=== PATIENT | female | born 1965 | race Native Hawaiian/Other Pacific Islander ===

== ENCOUNTER 2016-06-03 15:59 | Emergency (ER) | payer OTHER ==
[~2016-06-03] VITALS: Ht 170.2 cm; Wt 111.6 kg
[~2016-06-03 15:59] MED LIST: ANXIETY MED; HYDR10TA47 PO; LISINOPRIL
[2016-06-03 16:49] LABS: POTASSIUM 4.6 mmol/L (3.6-5.2)
[2016-06-03 16:52] LABS: PLATELET COUNT 336 K/uL (152-353)
[2016-06-03 17:12] VITALS: BP 160/87; TEMP 98
== END 2016-06-03 17:12 | disposition home or self-care (01) ==
LOC: ED 15:59
DX: R10.84 Generalized abdominal pain (principal); K57.92 Diverticulitis of intestine, part unspecified, without perforation or abscess without bleeding
CPT/HCPCS: 36415; 80053; 81000; 85027; 96365; 96374; 99284; J1885; J2405

== ENCOUNTER 2016-11-01 08:23 | Observation (INO) | payer OTHER ==
[~2016-11-01] VITALS: Ht 162.6 cm; Wt 109.4 kg
[2016-11-01 08:38] VITALS: BP 202/102; TEMP 97.8
[2016-11-01 09:37] LABS: PLATELET COUNT 280 K/uL (152-353)
[2016-11-01 10:05] LABS: POTASSIUM 4.2 mmol/L (3.6-5.2)
[2016-11-01 12:10] VITALS: BP 157/72
[2016-11-01 13:37] VITALS: BP 144/78; TEMP 97.7; Ht 162.6 cm; Wt 109.4 kg
[2016-11-01 20:00] VITALS: BP 136/79; TEMP 98
[2016-11-02 04:00] VITALS: BP 148/77; TEMP 98
[2016-11-02 04:51] LABS: PLATELET COUNT 213 K/uL (152-353)
[2016-11-02 05:07] LABS: POTASSIUM 3.9 mmol/L (3.6-5.2)
[2016-11-02 20:00] VITALS: BP 183/80; TEMP 98.2
[2016-11-03] VITALS: BP 159/84; TEMP 98.1
[2016-11-03 06:34] LABS: PLATELET COUNT 220 K/uL (152-353)
[2016-11-03 06:53] LABS: POTASSIUM 4.4 mmol/L (3.6-5.2); SODIUM 142 mmol/L (136-145)
[2016-11-03 08:00] VITALS: BP 147/68; TEMP 99.1
[2016-11-03 12:00] VITALS: BP 176/79; TEMP 99
== END 2016-11-03 16:50 | disposition home or self-care (01) ==
LOC: ED 08:23 → MED/SURG 12:05
PROVIDERS: Emergency Medicine; ADMIT Family Medicine
DX: R11.2 Nausea with vomiting, unspecified (principal); E11.9 Type 2 diabetes mellitus without complications; R19.7 Diarrhea, unspecified; R10.32 Left lower quadrant pain; R39.2 Extrarenal uremia; E88.09 Other disorders of plasma-protein metabolism, not elsewhere classified; F12.90 Cannabis use, unspecified, uncomplicated
CPT/HCPCS: 36415; 36591; 80048; 80053; 80307; 81000; 82150; 82948; 83036; 83690; 83735; 85027; 86318; 87040; 96365; 96366; 96367; 96374; 96375; 99220; 99284; G0378; G0479; J0744; J1650; J1885; J2405; J3475; J3490

== ENCOUNTER 2016-11-18 11:27 | Day surgery (SDC) | payer OTHER ==
[2016-11-18 13:37] LABS: PLATELET COUNT 287 K/uL (152-353)
[2016-11-18 13:43] LABS: POTASSIUM 4.5 mmol/L (3.6-5.2)
== END 2016-11-18 16:23 | disposition home or self-care (01) ==
LOC: OR 11:27
PROVIDERS: Internal Medicine Gastroenterology
PROC: 0DB68ZZ Excision of Stomach, Via Natural or Artificial Opening Endoscopic (ICD-10-PCS; principal; 2016-11-18)
PROC: 0DB88ZZ Excision of Small Intestine, Via Natural or Artificial Opening Endoscopic (ICD-10-PCS; 2016-11-18)
DX: K29.00 Acute gastritis without bleeding (principal); K29.80 Duodenitis without bleeding; K21.0 Gastro-esophageal reflux disease with esophagitis; R11.2 Nausea with vomiting, unspecified; R10.13 Epigastric pain
CPT/HCPCS: 80048; 85027; J2001; J2704; J3010; J3490

== ENCOUNTER 2017-05-07 08:59 | Emergency (ER) | payer OTHER ==
[~2017-05-07] VITALS: Ht 162.6 cm; Wt 112.5 kg
[2017-05-07 09:17] VITALS: BP 171/78; TEMP 98
== END 2017-05-07 11:20 | disposition home or self-care (01) ==
LOC: ED 08:59
PROC: 3E1B78Z Irrigation of Ear using Irrigating Substance, Via Natural or Artificial Opening (ICD-10-PCS; principal; 2017-05-07)
PROC: 3E1B78Z Irrigation of Ear using Irrigating Substance, Via Natural or Artificial Opening (ICD-10-PCS; 2017-05-07)
DX: H91.8X2 Other specified hearing loss, left ear (principal); H65.191 Other acute nonsuppurative otitis media, right ear; H61.23 Impacted cerumen, bilateral; H72.92 Unspecified perforation of tympanic membrane, left ear
CPT/HCPCS: 99283

== ENCOUNTER 2017-05-10 14:33 | Emergency (ER) | payer OTHER ==
[~2017-05-10] VITALS: Ht 162.6 cm; Wt 111.6 kg
[2017-05-10] MEDS ORDERED: LIPITOR10 MG PO (14:51)
[2017-05-10] MEDS ORDERED: ZANTAC300 MG PO (14:52)
[2017-05-10] MEDS ORDERED: TIZA4TAB5 PO (14:53)
[2017-05-10] MEDS ORDERED: METO5SYP21 PO (14:53)
[2017-05-10] MEDS ORDERED: ZOLOFT25 MG OR (14:54)
[2017-05-10] MEDS ORDERED: ASPIRIN 81 LOW81 MG PO (14:54)
[2017-05-10] MEDS ORDERED: ZESTRIL40 MG OR (14:54)
[2017-05-10] MEDS ORDERED: PROAIR HFA IN (14:58)
[2017-05-10] MEDS ORDERED: HYDR5TAB9 PO (14:58)
[2017-05-10 15:30] LABS: PLATELET COUNT 343 K/uL (152-353)
[2017-05-10 15:36] LABS: POTASSIUM 4.1 mmol/L (3.6-5.2)
[2017-05-10 19:32] VITALS: BP 165/92; TEMP 98.6
== END 2017-05-10 19:34 | disposition home or self-care (01) ==
LOC: ED 14:33
PROVIDERS: Emergency Medicine
DX: G43.909 Migraine, unspecified, not intractable, without status migrainosus (principal); H83.03 Labyrinthitis, bilateral; R11.2 Nausea with vomiting, unspecified
CPT/HCPCS: 36415; 80053; 82550; 84484; 85027; 96361; 96374; 96375; 96376; 99284; J0360; J1100; J1200; J1885; J2405

== ENCOUNTER 2017-05-19 15:04 | Emergency (ER) | payer OTHER ==
[~2017-05-19] VITALS: Ht 162.6 cm; Wt 109.8 kg
[~2017-05-19 15:04] MED LIST changes: +ASPIRIN 81 LOW81 MG PO; +HYDR5TAB9 PO; +LIPITOR10 MG PO; +METO5SYP21 PO; +PROAIR HFA IN; +TIZA4TAB5 PO; +ZANTAC300 MG PO; +ZESTRIL40 MG OR; +ZOLOFT25 MG OR
[2017-05-19 15:23] VITALS: TEMP 97.9
[2017-05-19 16:01] LABS: PLATELET COUNT 361 K/uL (152-353)
[2017-05-19 16:05] LABS: POTASSIUM 4.2 mmol/L (3.6-5.2)
[2017-05-19 16:47] VITALS: BP 129/76
== END 2017-05-19 17:00 | disposition home or self-care (01) ==
LOC: ED 15:04
PROVIDERS: Family Medicine
DX: I16.0 Hypertensive urgency (principal)
CPT/HCPCS: 80053; 85027; 87804; 96374; 96375; 99284; J1170; J2405; J3490

== ENCOUNTER 2017-05-23 13:53 | Outpatient (CLI) | payer OTHER | END 2017-05-23 14:06 | disposition short-term general hospital (02) | LOC: AMB 13:53 | DX: R11.2 Nausea with vomiting, unspecified (principal); R07.89 Other chest pain; I10 Essential (primary) hypertension | CPT/HCPCS: A0425; A0427 ==

== ENCOUNTER 2017-06-01 18:00 | Outpatient (CLI) | payer OTHER | END 2017-06-01 18:09 | disposition short-term general hospital (02) | LOC: AMB 18:00 | DX: R53.1 Weakness (principal); R11.2 Nausea with vomiting, unspecified; R19.7 Diarrhea, unspecified | CPT/HCPCS: A0425; A0427 ==

== ENCOUNTER 2017-11-18 18:09 | Emergency (ER) | payer OTHER ==
[~2017-11-18] VITALS: Ht 162.6 cm; Wt 91.2 kg
[2017-11-18 19:16] LABS: PLATELET COUNT 183 K/uL (152-353)
[2017-11-18 19:29] LABS: POTASSIUM 3.7 mmol/L (3.6-5.2)
[2017-11-18 22:59] VITALS: BP 164/87; TEMP 98.5
== END 2017-11-18 22:39 | disposition home or self-care (01) ==
LOC: ED 18:09
DX: I12.0 Hypertensive chronic kidney disease with stage 5 chronic kidney disease or end stage renal disease (principal); N18.6 End stage renal disease; R11.2 Nausea with vomiting, unspecified; R50.9 Fever, unspecified; H83.8X9 Other specified diseases of inner ear, unspecified ear; H92.09 Otalgia, unspecified ear; R07.89 Other chest pain; R51 Headache
CPT/HCPCS: 80053; 82150; 82550; 82553; 83690; 83735; 84484; 85027; 93005; 96374; 96375; 99284; J2270; J2405; J2550

== ENCOUNTER 2017-12-06 11:01 | Emergency (ER) | payer OTHER ==
[~2017-12-06] VITALS: Ht 162.6 cm; Wt 91.2 kg
[2017-12-06 12:35] LABS: PLATELET COUNT 351 K/uL (152-353)
[2017-12-06 12:46] LABS: POTASSIUM 3.8 mmol/L (3.6-5.2)
[2017-12-06 14:30] VITALS: BP 165/89; TEMP 97.7
== END 2017-12-06 14:30 | disposition home or self-care (01) ==
LOC: ED 11:01
DX: R11.2 Nausea with vomiting, unspecified (principal); N18.9 Chronic kidney disease, unspecified; Z99.2 Dependence on renal dialysis
CPT/HCPCS: 36415; 74022; 80053; 85027; 96365; 96374; 99284; J2405

== ENCOUNTER 2018-02-07 13:13 | Emergency (ER) | payer OTHER ==
[~2018-02-07] VITALS: Ht 162.6 cm; Wt 91.2 kg
[2018-02-07 13:26] VITALS: TEMP 97
[2018-02-07 14:55] LABS: PLATELET COUNT 301 K/uL (152-353)
[2018-02-07 15:11] LABS: POTASSIUM 4.6 mmol/L (3.6-5.2)
[2018-02-07 16:19] VITALS: BP 164/84
== END 2018-02-07 16:20 | disposition home or self-care (01) ==
LOC: ED 13:13
DX: K52.89 Other specified noninfective gastroenteritis and colitis (principal); E11.9 Type 2 diabetes mellitus without complications
CPT/HCPCS: 36415; 80053; 81000; 82550; 82553; 83036; 84484; 85027; 93005; 96365; 96374; 99284; J2405; J7120

== ENCOUNTER 2018-04-15 19:59 | Emergency (ER) | payer OTHER ==
[~2018-04-15] VITALS: Ht 162.6 cm; Wt 91.2 kg
[2018-04-15 20:39] LABS: PLATELET COUNT 299 K/uL (152-353)
[2018-04-15 20:50] LABS: POTASSIUM 3.9 mmol/L (3.6-5.2)
[2018-04-15 22:27] VITALS: BP 162/87; TEMP 97.9
== END 2018-04-15 22:28 | disposition home or self-care (01) ==
LOC: ED 19:59
DX: K52.89 Other specified noninfective gastroenteritis and colitis (principal)
CPT/HCPCS: 36415; 74022; 80053; 81000; 82140; 83605; 85027; 96360; 96375; 99284; J2175; J2405; J7120

== ENCOUNTER 2018-04-20 17:31 | Outpatient (CLI) | payer OTHER | END 2018-04-20 17:40 | disposition short-term general hospital (02) | LOC: AMB 17:31 | DX: I10 Essential (primary) hypertension (principal) | CPT/HCPCS: A0425; A0427 ==

== ENCOUNTER 2018-04-20 17:40 | Emergency (ER) | payer OTHER ==
[~2018-04-20] VITALS: Ht 162.6 cm; Wt 91.2 kg
[2018-04-20 18:45] LABS: PLATELET COUNT 301 K/uL (152-353)
[2018-04-20 19:14] LABS: POTASSIUM 3.9 mmol/L (3.6-5.2); SODIUM 141 mmol/L (136-145)
[2018-04-20 20:17] VITALS: BP 146/55; TEMP 97.7
== END 2018-04-20 20:17 | disposition home or self-care (01) ==
LOC: ED 17:40
PROVIDERS: Emergency Medicine
DX: I10 Essential (primary) hypertension (principal); N19 Unspecified kidney failure
CPT/HCPCS: 36415; 80053; 82550; 82553; 84484; 85027; 93005; 99283

== ENCOUNTER 2018-04-24 16:01 | Outpatient (CLI) | payer OTHER | END 2018-04-24 16:09 | disposition short-term general hospital (02) | LOC: AMB 16:01 | DX: R11.2 Nausea with vomiting, unspecified (principal); Z99.2 Dependence on renal dialysis | CPT/HCPCS: A0425; A0427 ==

== ENCOUNTER 2018-04-24 16:10 | Emergency (ER) | payer OTHER ==
[~2018-04-24] VITALS: Ht 162.6 cm; Wt 91.2 kg
[2018-04-24 17:07] LABS: PLATELET COUNT 349 K/uL (152-353)
[2018-04-24 17:18] LABS: POTASSIUM 3.7 mmol/L (3.6-5.2)
[2018-04-24 21:54] VITALS: BP 134/48; TEMP 98.1
== END 2018-04-24 21:55 | disposition home or self-care (01) ==
LOC: ED 16:10
PROVIDERS: Family Medicine
DX: K57.30 Diverticulosis of large intestine without perforation or abscess without bleeding (principal); K57.92 Diverticulitis of intestine, part unspecified, without perforation or abscess without bleeding
CPT/HCPCS: 74022; 80053; 81000; 85027; 87088; 96374; 96375; 99284; J1885; J2405

== ENCOUNTER 2018-05-31 14:48 | Outpatient (CLI) | payer OTHER | END 2018-05-31 14:58 | disposition short-term general hospital (02) | LOC: AMB 14:48 | DX: R10.9 Unspecified abdominal pain (principal); R11.2 Nausea with vomiting, unspecified | CPT/HCPCS: A0425; A0427 ==

== ENCOUNTER 2018-05-31 14:58 | Emergency (ER) | payer OTHER ==
[~2018-05-31] VITALS: Ht 162.6 cm; Wt 91.2 kg
[2018-05-31 15:53] LABS: PLATELET COUNT 253 K/uL (152-353)
[2018-05-31 16:06] LABS: POTASSIUM 5.3 mmol/L (3.6-5.2)
[2018-05-31 18:25] VITALS: BP 160/86; TEMP 97.8
== END 2018-05-31 18:25 | disposition home or self-care (01) ==
LOC: ED 15:06
PROVIDERS: Family Medicine
DX: N19 Unspecified kidney failure (principal); R11.2 Nausea with vomiting, unspecified; R10.13 Epigastric pain
CPT/HCPCS: 80053; 82150; 83690; 85027; 96374; 99284; J1885; J2175

== ENCOUNTER 2018-08-01 11:13 | Outpatient (CLI) | payer OTHER ==
[2018-08-01 12:01] LABS: PLATELET COUNT 216 K/uL (152-353)
[2018-08-01 12:14] LABS: POTASSIUM 3.4 mmol/L (3.6-5.2)
== END 2018-08-01 23:01 | disposition home or self-care (01) ==
LOC: LABW 11:13
PROVIDERS: Podiatrist
DX: Z01.818 Encounter for other preprocedural examination (principal); Z01.811 Encounter for preprocedural respiratory examination; Z79.899 Other long term (current) drug therapy
CPT/HCPCS: 36415; 80048; 85027; 93005

== ENCOUNTER 2018-08-09 13:34 | Emergency (ER) | payer OTHER ==
[~2018-08-09] VITALS: Ht 162.6 cm; Wt 91.2 kg
[2018-08-09 15:52] LABS: PLATELET COUNT 306 K/uL (152-353)
[2018-08-09 16:20] LABS: POTASSIUM 4.1 mmol/L (3.6-5.2)
[2018-08-09 16:55] VITALS: BP 146/67; TEMP 97.7
== END 2018-08-09 17:00 | disposition home or self-care (01) ==
LOC: ED 13:34
PROVIDERS: Family Medicine
DX: K52.89 Other specified noninfective gastroenteritis and colitis (principal); R00.1 Bradycardia, unspecified
CPT/HCPCS: 36415; 80053; 82150; 83690; 85027; 93005; 96372; 99283; J2550

== ENCOUNTER 2018-08-12 20:40 | Outpatient (CLI) | payer OTHER | END 2018-08-12 21:04 | disposition short-term general hospital (02) | LOC: AMB 20:40 | DX: R11.2 Nausea with vomiting, unspecified (principal); R53.1 Weakness; I10 Essential (primary) hypertension; R07.89 Other chest pain | CPT/HCPCS: A0425; A0427 ==

== ENCOUNTER 2018-08-17 17:15 | Outpatient (CLI) | payer OTHER | END 2018-08-17 17:25 | disposition short-term general hospital (02) | LOC: AMB 17:15 | DX: R07.89 Other chest pain (principal); R11.2 Nausea with vomiting, unspecified | CPT/HCPCS: A0425; A0427 ==

== ENCOUNTER 2018-08-17 17:25 | Emergency (ER) | payer OTHER ==
[~2018-08-17] VITALS: Ht 162.6 cm; Wt 91.2 kg
[2018-08-17 17:54] LABS: PLATELET COUNT 240 K/uL (152-353)
[2018-08-17 18:10] LABS: POTASSIUM 3.7 mmol/L (3.6-5.2); SODIUM 139 mmol/L (136-145)
[2018-08-17 20:02] LABS: PARTIAL THROMBOPLASTIN TIME 25.2 SECONDS (24.5-33.6)
[2018-08-17 20:40] VITALS: BP 236/95; TEMP 97.8
== END 2018-08-17 20:40 | disposition home or self-care (01) ==
LOC: ED 17:25
PROVIDERS: Emergency Medicine
DX: R79.89 Other specified abnormal findings of blood chemistry (principal); R07.89 Other chest pain; N19 Unspecified kidney failure
CPT/HCPCS: 80053; 82550; 84484; 85027; 85379; 85610; 85730; 96365; 96375; 99285; J1644; J1885; J2405

== ENCOUNTER 2018-08-23 14:46 | Outpatient (CLI) | payer OTHER ==
[2018-08-23] MEDS ORDERED: ZOFRAN ODT4 MG PO (15:30)
[2018-08-23] MEDS ORDERED: RENA-VITE PO (15:34)
[2018-08-23] MEDS ORDERED: SIMV40TA57 PO (15:35)
[2018-08-23] MEDS ORDERED: BYSTOLIC20 MG PO (15:35)
[2018-08-23] MEDS ORDERED: TEMA15CA19 PO (15:35)
[2018-08-23] MEDS ORDERED: AMLODIPINE BESYLATE PO (15:36)
[2018-08-23] MEDS ORDERED: CLOP75TA2 PO (15:36)
[2018-08-23] MEDS ORDERED: FUROSEMIDE80 MG PO (15:37)
== END 2018-08-23 14:53 | disposition short-term general hospital (02) ==
LOC: AMB 14:46
DX: I10 Essential (primary) hypertension (principal); R11.0 Nausea; R52 Pain, unspecified
CPT/HCPCS: A0425; A0429

== ENCOUNTER 2018-08-23 14:56 | Emergency (ER) | payer OTHER ==
[~2018-08-23] VITALS: Ht 162.6 cm; Wt 90.3 kg
[2018-08-23] MEDS ORDERED: ZOFRAN ODT4 MG PO (15:30)
[2018-08-23] MEDS ORDERED: RENA-VITE PO (15:34)
[2018-08-23] MEDS ORDERED: TEMA15CA19 PO (15:35)
[2018-08-23] MEDS ORDERED: SIMV40TA57 PO (15:35)
[2018-08-23] MEDS ORDERED: BYSTOLIC20 MG PO (15:35)
[2018-08-23] MEDS ORDERED: CLOP75TA2 PO (15:36)
[2018-08-23] MEDS ORDERED: AMLODIPINE BESYLATE PO (15:36)
[2018-08-23] MEDS ORDERED: FUROSEMIDE80 MG PO (15:37)
[2018-08-23 15:58] LABS: PLATELET COUNT 223 K/uL (152-353)
[2018-08-23 16:10] LABS: POTASSIUM 4.2 mmol/L (3.6-5.2); SODIUM 143 mmol/L (136-145)
[2018-08-23 18:10] VITALS: BP 159/78; TEMP 97.8
== END 2018-08-23 18:10 | disposition home or self-care (01) ==
LOC: ED 14:56
PROVIDERS: Family Medicine
DX: R07.89 Other chest pain (principal); R11.2 Nausea with vomiting, unspecified
CPT/HCPCS: 36415; 80053; 82550; 84484; 85027; 93005; 96374; 96375; 99284; J1885; J2405

== ENCOUNTER 2018-08-31 07:58 | Emergency (ER) | payer OTHER ==
[~2018-08-31 07:58] MED LIST changes: +AMLODIPINE BESYLATE PO; +BYSTOLIC20 MG PO; +CLOP75TA2 PO; +FUROSEMIDE80 MG PO; +RENA-VITE PO; +SIMV40TA57 PO; +TEMA15CA19 PO; +ZOFRAN ODT4 MG PO
== END 2018-08-31 08:10 | disposition home or self-care (01) ==
LOC: ED 07:58
DX: R07.89 Other chest pain (principal)
CPT/HCPCS: 99281

== ENCOUNTER 2018-09-24 05:11 | Emergency (ER) | payer OTHER ==
[~2018-09-24] VITALS: Ht 162.6 cm; Wt 90.3 kg
[2018-09-24 05:20] VITALS: TEMP 97.7
[2018-09-24 06:08] LABS: PLATELET COUNT 279 K/uL (152-353)
[2018-09-24 06:18] LABS: POTASSIUM 4.8 mmol/L (3.6-5.2)
[2018-09-24 08:10] VITALS: BP 178/84
== END 2018-09-24 08:10 | disposition home or self-care (01) ==
LOC: ED 05:11
PROVIDERS: Student in an Organized Health Care Education/Training Program
DX: K57.32 Diverticulitis of large intestine without perforation or abscess without bleeding (principal); N18.6 End stage renal disease; Z99.2 Dependence on renal dialysis
CPT/HCPCS: 36415; 80053; 82150; 83690; 85027; 93005; 96374; 96375; 99284; J0696; J1170; J2550

== ENCOUNTER 2018-10-07 16:48 | Emergency (ER) | payer OTHER ==
[~2018-10-07] VITALS: Ht 162.6 cm; Wt 90.3 kg
[2018-10-07 17:42] LABS: PLATELET COUNT 305 K/uL (152-353)
[2018-10-07 17:54] LABS: POTASSIUM 3.3 mmol/L (3.6-5.2)
[2018-10-07 19:39] VITALS: BP 188/72; TEMP 98.3
== END 2018-10-07 19:39 | disposition home or self-care (01) ==
LOC: ED 16:48
PROVIDERS: Emergency Medicine Emergency Medical Services
DX: R51 Headache (principal); N18.6 End stage renal disease; Z99.2 Dependence on renal dialysis
CPT/HCPCS: 36415; 80053; 85027; 96360; 96361; 96374; 96375; 99284; J2175; J2405

== ENCOUNTER 2018-11-14 19:02 | Emergency (ER) | payer OTHER ==
[~2018-11-14] VITALS: Ht 162.6 cm; Wt 84.8 kg
[2018-11-14 20:34] VITALS: BP 150/85; TEMP 98
== END 2018-11-14 20:35 | disposition home or self-care (01) ==
LOC: ED 19:02
DX: S92.512A Displaced fracture of proximal phalanx of left lesser toe(s), initial encounter for closed fracture (principal); W22.8XXA Striking against or struck by other objects, initial encounter; Y93.89 Activity, other specified; Y92.89 Other specified places as the place of occurrence of the external cause
CPT/HCPCS: 99282

== ENCOUNTER 2018-11-27 19:18 | Outpatient (CLI) | payer OTHER | END 2018-11-27 19:24 | disposition short-term general hospital (02) | LOC: AMB 19:18 | DX: R11.2 Nausea with vomiting, unspecified (principal); R51 Headache; I10 Essential (primary) hypertension | CPT/HCPCS: A0425; A0427 ==

== ENCOUNTER 2018-11-27 19:24 | Emergency (ER) | payer OTHER ==
[~2018-11-27] VITALS: Ht 162.6 cm; Wt 84.8 kg
[2018-11-27 20:15] LABS: PLATELET COUNT 258 K/uL (152-353)
[2018-11-27 20:34] LABS: POTASSIUM 4.8 mmol/L (3.6-5.2); SODIUM 144 mmol/L (136-145)
[2018-11-27 20:45] LABS: PARTIAL THROMBOPLASTIN TIME 29.9 SECONDS (24.5-33.6)
[2018-11-27 23:35] VITALS: BP 137/74; TEMP 98
== END 2018-11-27 23:35 | disposition home or self-care (01) ==
LOC: ED 19:31
PROVIDERS: Hospitalist
DX: N18.6 End stage renal disease (principal); Z99.2 Dependence on renal dialysis; I16.0 Hypertensive urgency; R07.89 Other chest pain; R51 Headache; F17.210 Nicotine dependence, cigarettes, uncomplicated
CPT/HCPCS: 80053; 82550; 83880; 84484; 85027; 85610; 85730; 93005; 96374; 96375; 96376; 99284; J2270; J2405; J3490

== ENCOUNTER 2018-12-04 13:40 | Outpatient (CLI) | payer OTHER | END 2018-12-04 13:48 | disposition short-term general hospital (02) | LOC: AMB 13:40 | DX: I10 Essential (primary) hypertension (principal); R11.2 Nausea with vomiting, unspecified; R52 Pain, unspecified | CPT/HCPCS: A0425; A0427 ==

== ENCOUNTER 2018-12-04 13:52 | Emergency (ER) | payer OTHER ==
[~2018-12-04] VITALS: Ht 162.6 cm; Wt 84.8 kg
[2018-12-04 14:00] VITALS: TEMP 97.2
[2018-12-04 14:26] LABS: PLATELET COUNT 278 K/uL (152-353)
[2018-12-04 14:48] LABS: PARTIAL THROMBOPLASTIN TIME 27.7 SECONDS (24.5-33.6)
[2018-12-04 14:50] LABS: POTASSIUM 5.6 mmol/L (3.6-5.2); SODIUM 143 mmol/L (136-145)
[2018-12-04 18:44] VITALS: BP 182/82
== END 2018-12-04 19:00 | disposition short-term general hospital (02) ==
LOC: ED 13:52
PROVIDERS: Hospitalist
PROC: 0BH17EZ Insertion of Endotracheal Airway into Trachea, Via Natural or Artificial Opening (ICD-10-PCS; principal; 2018-12-04)
PROC: 5A1935Z Respiratory Ventilation, Less than 24 Consecutive Hours (ICD-10-PCS; 2018-12-04)
PROC: 0T9B70Z Drainage of Bladder with Drainage Device, Via Natural or Artificial Opening (ICD-10-PCS; 2018-12-04)
DX: N18.6 End stage renal disease (principal); Z99.2 Dependence on renal dialysis; Z91.15 Patient's noncompliance with renal dialysis; R07.89 Other chest pain; I50.9 Heart failure, unspecified; R11.2 Nausea with vomiting, unspecified; E87.5 Hyperkalemia; R51 Headache
CPT/HCPCS: 31500; 36600; 51702; 80053; 80320; 81000; 82550; 82805; 83880; 84484; 85027; 85610; 85730; 93005; 94002; 94003; 94660; 94664; 96365; 96368; 96375; 99285; C1726; J0610; J1940; J2250; J2270; J2405; J3490

== ENCOUNTER 2018-12-27 21:01 | Emergency (ER) | payer OTHER ==
[~2018-12-27] VITALS: Ht 162.6 cm; Wt 84.8 kg
[2018-12-27 22:52] LABS: PLATELET COUNT 301 K/uL (152-353)
[2018-12-27 22:56] LABS: POTASSIUM 3.9 mmol/L (3.6-5.2); SODIUM 138 mmol/L (136-145)
[2018-12-28 02:50] VITALS: BP 158/79; TEMP 97.7
== END 2018-12-28 02:50 | disposition home or self-care (01) ==
LOC: ED 21:01
PROVIDERS: Emergency Medicine
DX: R07.89 Other chest pain (principal); E86.0 Dehydration; Z99.2 Dependence on renal dialysis; R00.1 Bradycardia, unspecified
CPT/HCPCS: 80053; 83690; 84484; 85027; 93005; 96374; 99284; J2405

== ENCOUNTER 2019-01-11 18:38 | Outpatient (CLI) | payer OTHER | END 2019-01-11 19:13 | disposition short-term general hospital (02) | LOC: AMB 18:38 | DX: R51 Headache (principal); R11.2 Nausea with vomiting, unspecified | CPT/HCPCS: A0425; A0427 ==

== ENCOUNTER 2019-01-20 13:38 | Outpatient (CLI) | payer OTHER | END 2019-01-20 13:45 | disposition short-term general hospital (02) | LOC: AMB 13:38 | DX: R11.10 Vomiting, unspecified (principal); R19.7 Diarrhea, unspecified; R53.1 Weakness; R07.89 Other chest pain; Z99.2 Dependence on renal dialysis | CPT/HCPCS: A0425; A0427 ==

== ENCOUNTER 2019-01-20 13:50 | Emergency (ER) | payer OTHER ==
[~2019-01-20] VITALS: Ht 162.6 cm; Wt 78.0 kg
[2019-01-20 14:01] VITALS: TEMP 97.3
[2019-01-20 14:16] LABS: PLATELET COUNT 255 K/uL (152-353)
[2019-01-20 15:36] LABS: POTASSIUM 5.7 mmol/L (3.6-5.2)
[2019-01-21 01:32] LABS: PARTIAL THROMBOPLASTIN TIME 25.4 SECONDS (24.5-33.6)
[2019-01-21 02:12] VITALS: BP 155/97
== END 2019-01-21 02:17 | disposition short-term general hospital (02) ==
LOC: ED 13:50
PROVIDERS: Family Medicine
DX: I21.3 ST elevation (STEMI) myocardial infarction of unspecified site (principal); R07.89 Other chest pain; N18.6 End stage renal disease; Z99.2 Dependence on renal dialysis; F17.210 Nicotine dependence, cigarettes, uncomplicated
CPT/HCPCS: 80053; 84484; 85027; 85610; 85730; 87502; 93005; 96360; 96361; 96365; 96374; 96375; 99285; J1644; J2060; J2270; J2405

== ENCOUNTER 2019-01-30 03:59 | Outpatient (CLI) | payer OTHER | END 2019-01-30 04:07 | disposition short-term general hospital (02) | LOC: AMB 03:59 | DX: R10.84 Generalized abdominal pain (principal); R11.0 Nausea; K92.1 Melena | CPT/HCPCS: A0425; A0427 ==

== ENCOUNTER 2019-01-30 04:20 | Emergency (ER) | payer OTHER ==
[~2019-01-30] VITALS: Ht 162.6 cm; Wt 78.0 kg
[2019-01-30 06:24] LABS: PLATELET COUNT 290 K/uL (152-353)
[2019-01-30 06:35] LABS: POTASSIUM 4.5 mmol/L (3.6-5.2)
[2019-01-30 06:52] LABS: PARTIAL THROMBOPLASTIN TIME 26.1 SECONDS (24.5-33.6)
[2019-01-30 07:59] VITALS: BP 111/67; TEMP 97.3
== END 2019-01-30 07:59 | disposition home or self-care (01) ==
LOC: ED 04:20
PROVIDERS: Hospitalist
DX: K57.90 Diverticulosis of intestine, part unspecified, without perforation or abscess without bleeding (principal); K64.4 Residual hemorrhoidal skin tags; N18.6 End stage renal disease; Z99.2 Dependence on renal dialysis
CPT/HCPCS: 36415; 80053; 82150; 82272; 83690; 85027; 85610; 85730; 93005; 96365; 96375; 99284; J2405; J3490

== ENCOUNTER 2019-02-11 17:22 | Outpatient (CLI) | payer OTHER | END 2019-02-11 17:39 | disposition short-term general hospital (02) | LOC: AMB 17:22 | DX: R07.89 Other chest pain (principal) | CPT/HCPCS: A0425; A0427 ==

== ENCOUNTER 2019-02-11 17:49 | Emergency (ER) | payer OTHER ==
[~2019-02-11] VITALS: Ht 162.6 cm; Wt 76.2 kg
[2019-02-11 18:13] LABS: PLATELET COUNT 236 K/uL (152-353)
[2019-02-11 18:46] LABS: POTASSIUM 3.6 mmol/L (3.6-5.2)
[2019-02-11 20:00] VITALS: BP 175/64; TEMP 97.7
== END 2019-02-11 20:00 | disposition home or self-care (01) ==
LOC: ED 17:49
PROVIDERS: Emergency Medicine Emergency Medical Services
DX: R07.89 Other chest pain (principal); I16.0 Hypertensive urgency
CPT/HCPCS: 36415; 80053; 82550; 83880; 84484; 85027; 85610; 85730; 93005; 96374; 96375; 99284; J2270; J2405

== ENCOUNTER 2019-02-19 10:09 | Outpatient (CLI) | payer OTHER | END 2019-02-19 10:15 | disposition short-term general hospital (02) | LOC: AMB 10:09 | DX: R10.84 Generalized abdominal pain (principal) | CPT/HCPCS: A0425; A0427 ==

== ENCOUNTER 2019-02-19 10:20 | Emergency (ER) | payer OTHER ==
[~2019-02-19] VITALS: Ht 162.6 cm; Wt 76.2 kg
[2019-02-19 10:20] VITALS: TEMP 98
[2019-02-19 11:02] LABS: PLATELET COUNT 204 K/uL (152-353)
[2019-02-19 11:15] LABS: PARTIAL THROMBOPLASTIN TIME 25.6 SECONDS (24.5-33.6); POTASSIUM 4.1 mmol/L (3.6-5.2)
[2019-02-19 13:40] VITALS: BP 172/84
== END 2019-02-19 13:42 | disposition home or self-care (01) ==
LOC: ED 10:20
PROVIDERS: Hospitalist
DX: K57.90 Diverticulosis of intestine, part unspecified, without perforation or abscess without bleeding (principal); R11.2 Nausea with vomiting, unspecified; N18.6 End stage renal disease; Z99.2 Dependence on renal dialysis; F17.210 Nicotine dependence, cigarettes, uncomplicated
CPT/HCPCS: 80053; 80320; 82150; 83690; 84484; 85027; 85610; 85730; 93005; 96374; 96375; 99284; J1885; J2270; J2405; J3490

== ENCOUNTER 2019-02-24 00:59 | Outpatient (CLI) | payer OTHER | END 2019-02-24 01:06 | disposition short-term general hospital (02) | LOC: AMB 00:59 | DX: R10.84 Generalized abdominal pain (principal); R11.10 Vomiting, unspecified | CPT/HCPCS: A0425; A0427 ==

== ENCOUNTER 2019-02-24 01:14 | Emergency (ER) | payer OTHER ==
[~2019-02-24] VITALS: Ht 162.6 cm; Wt 76.2 kg
[2019-02-24 01:45] LABS: PLATELET COUNT 256 K/uL (152-353)
[2019-02-24 02:02] LABS: POTASSIUM 4.9 mmol/L (3.6-5.2)
[2019-02-24 03:16] VITALS: BP 186/103; TEMP 98.2
== END 2019-02-24 03:16 | disposition home or self-care (01) ==
LOC: ED 01:14
PROVIDERS: Emergency Medicine
DX: K58.9 Irritable bowel syndrome, unspecified (principal); R14.3 Flatulence
CPT/HCPCS: 80053; 84484; 85027; 93005; 99283

== ENCOUNTER 2019-03-06 08:40 | Outpatient (CLI) | payer OTHER | END 2019-03-06 08:48 | disposition short-term general hospital (02) | LOC: AMB 08:40 | DX: R10.84 Generalized abdominal pain (principal); R11.10 Vomiting, unspecified; R19.7 Diarrhea, unspecified | CPT/HCPCS: A0425; A0427 ==

== ENCOUNTER 2019-03-06 08:49 | Emergency (ER) | payer OTHER ==
[~2019-03-06] VITALS: Ht 162.6 cm; Wt 87.7 kg
[2019-03-06 08:49] VITALS: TEMP 97.7
[2019-03-06 09:12] LABS: PLATELET COUNT 550 K/uL (152-353)
[2019-03-06 09:53] LABS: SODIUM 144 mmol/L (136-145)
[2019-03-06 10:30] VITALS: BP 169/75
== END 2019-03-06 10:45 | disposition home or self-care (01) ==
LOC: ED 08:54
PROVIDERS: Emergency Medicine
DX: K52.89 Other specified noninfective gastroenteritis and colitis (principal); Z99.2 Dependence on renal dialysis
CPT/HCPCS: 80053; 82150; 83690; 84484; 85027; 93005; 96360; 96374; 96375; 99284; J2405

== ENCOUNTER 2019-03-25 10:35 | Outpatient (CLI) | payer OTHER | END 2019-03-25 10:46 | disposition short-term general hospital (02) | LOC: AMB 10:35 | DX: R53.1 Weakness (principal); R50.9 Fever, unspecified; Z99.2 Dependence on renal dialysis | CPT/HCPCS: A0425; A0429 ==

== ENCOUNTER 2019-03-25 10:53 | Emergency (ER) | payer OTHER ==
[~2019-03-25] VITALS: Ht 162.6 cm; Wt 87.5 kg
[2019-03-25 11:46] LABS: PLATELET COUNT 386 K/uL (152-353)
[2019-03-25 12:17] VITALS: BP 159/91; TEMP 98.2
== END 2019-03-25 12:17 | disposition home or self-care (01) ==
LOC: ED 10:53
PROVIDERS: Emergency Medicine Emergency Medical Services
DX: L03.114 Cellulitis of left upper limb (principal)
CPT/HCPCS: 85027; 99283

== ENCOUNTER → 2019-03-28 13:02 | Outpatient (CLI) | payer OTHER | END | disposition short-term general hospital (02) | LOC: AMB 13:02 | DX: R07.89 Other chest pain (principal); R51 Headache; R11.2 Nausea with vomiting, unspecified | CPT/HCPCS: A0425; A0427 ==

== ENCOUNTER 2019-03-28 13:04 | Emergency (ER) | payer OTHER ==
[~2019-03-28] VITALS: Ht 162.6 cm; Wt 87.5 kg
[2019-03-28 14:25] LABS: POTASSIUM 4.2 mmol/L (3.6-5.2)
[2019-03-28 14:35] LABS: PLATELET COUNT 421 K/uL (152-353)
[2019-03-28 15:45] VITALS: BP 158/62; TEMP 97.6
== END 2019-03-28 15:45 | disposition home or self-care (01) ==
LOC: ED 13:04
PROVIDERS: Family Medicine
DX: R11.2 Nausea with vomiting, unspecified (principal); N18.6 End stage renal disease; Z99.2 Dependence on renal dialysis; R00.1 Bradycardia, unspecified
CPT/HCPCS: 36415; 80053; 85027; 93005; 96374; 96375; 99284; J1885; J2405

== ENCOUNTER 2019-04-04 15:21 | Outpatient (CLI) | payer OTHER | END 2019-04-04 20:26 | disposition home or self-care (01) | LOC: RESP 15:21 | DX: R06.02 Shortness of breath (principal) ==

== ENCOUNTER 2019-04-17 17:51 | Outpatient (CLI) | payer OTHER | END 2019-04-17 17:58 | disposition short-term general hospital (02) | LOC: AMB 17:51 | DX: R11.2 Nausea with vomiting, unspecified (principal) | CPT/HCPCS: A0425; A0429 ==

== ENCOUNTER 2019-04-17 18:03 | Emergency (ER) | payer OTHER ==
[~2019-04-17] VITALS: Ht 162.6 cm; Wt 87.5 kg
[2019-04-17 18:35] LABS: PLATELET COUNT 339 K/uL (152-353)
[2019-04-17 18:47] LABS: POTASSIUM 5.3 mmol/L (3.6-5.2); SODIUM 141 mmol/L (136-145)
[2019-04-17 21:20] VITALS: BP 169/96; TEMP 98.1
== END 2019-04-17 21:20 | disposition short-term general hospital (02) ==
LOC: ED 18:03
PROVIDERS: Emergency Medicine
DX: K85.80 Other acute pancreatitis without necrosis or infection (principal); K57.90 Diverticulosis of intestine, part unspecified, without perforation or abscess without bleeding; Z79.899 Other long term (current) drug therapy; Z99.2 Dependence on renal dialysis
CPT/HCPCS: 36415; 80053; 83690; 84484; 85027; 93005; 96365; 96375; 99284; J2543; J3490

== ENCOUNTER 2019-04-17 21:18 | Outpatient (CLI) | payer OTHER | END 2019-04-17 22:40 | disposition short-term general hospital (02) | LOC: AMB 21:18 | DX: K85.80 Other acute pancreatitis without necrosis or infection (principal); K57.92 Diverticulitis of intestine, part unspecified, without perforation or abscess without bleeding; I31.3 Pericardial effusion (noninflammatory) | CPT/HCPCS: A0425; A0427 ==

== ENCOUNTER 2019-05-03 10:56 | Outpatient (CLI) | payer OTHER | END 2019-05-03 19:27 | disposition home or self-care (01) | LOC: CT 10:56 | DX: R05 Cough (principal) ==

== ENCOUNTER 2019-05-04 18:04 | Emergency (ER) | payer OTHER ==
[~2019-05-04] VITALS: Ht 162.6 cm; Wt 87.5 kg
[2019-05-04 19:07] LABS: PLATELET COUNT 302 K/uL (152-353)
[2019-05-04 19:18] LABS: POTASSIUM 3.3 mmol/L (3.6-5.2); SODIUM 142 mmol/L (136-145)
[2019-05-04 19:51] VITALS: BP 171/98; TEMP 97.8
== END 2019-05-04 19:51 | disposition home or self-care (01) ==
LOC: ED 18:04
PROVIDERS: Emergency Medicine
DX: M94.0 Chondrocostal junction syndrome [Tietze] (principal)
CPT/HCPCS: 36415; 80053; 82550; 84484; 85027; 87502; 87651; 93005; 99283

== ENCOUNTER 2019-05-31 19:57 | Emergency (ER) | payer OTHER ==
[~2019-05-31] VITALS: Ht 162.6 cm; Wt 70.8 kg
[2019-05-31 20:51] LABS: PLATELET COUNT 526 K/uL (152-353)
[2019-05-31 21:02] LABS: POTASSIUM 3.2 mmol/L (3.6-5.2)
[2019-06-01 04:21] VITALS: BP 110/60; TEMP 98.6
== END 2019-06-01 04:21 | disposition home or self-care (01) ==
LOC: ED 19:57
PROVIDERS: Emergency Medicine
DX: R11.2 Nausea with vomiting, unspecified (principal); R19.7 Diarrhea, unspecified; Z86.19 Personal history of other infectious and parasitic diseases; N18.6 End stage renal disease; Z99.2 Dependence on renal dialysis
CPT/HCPCS: 80053; 82272; 83630; 85027; 87015; 87045; 87324; 87449; 87899; 96374; 99284

== ENCOUNTER 2019-06-07 20:15 | Outpatient (CLI) | payer OTHER | END 2019-06-07 20:35 | disposition short-term general hospital (02) | LOC: AMB 20:15 | DX: R11.2 Nausea with vomiting, unspecified (principal); R19.7 Diarrhea, unspecified; R53.1 Weakness | CPT/HCPCS: A0425; A0429 ==

== ENCOUNTER 2019-07-15 13:55 | Outpatient (CLI) | payer OTHER | END 2019-07-15 22:58 | disposition home or self-care (01) | LOC: LAB 13:55 | PROVIDERS: Student in an Organized Health Care Education/Training Program | DX: E87.5 Hyperkalemia (principal) | CPT/HCPCS: 80048; 82565; 84132; 84520 ==

== ENCOUNTER 2019-07-18 10:45 | Emergency (ER) | payer OTHER ==
[~2019-07-18] VITALS: Ht 162.6 cm; Wt 70.8 kg
[2019-07-18 11:01] LABS: PLATELET COUNT 460 K/uL (152-353)
[2019-07-18 11:18] LABS: POTASSIUM 5.8 mmol/L (3.6-5.2)
[2019-07-18 13:35] VITALS: BP 153/84; TEMP 98.6
== END 2019-07-18 13:35 | disposition home or self-care (01) ==
LOC: ED 10:45
PROVIDERS: Family Medicine
DX: K52.89 Other specified noninfective gastroenteritis and colitis (principal); N18.6 End stage renal disease; Z99.2 Dependence on renal dialysis; E86.0 Dehydration
CPT/HCPCS: 80053; 82150; 83690; 85027; 96374; 96375; 99283; J2175; J2405; J3490

== ENCOUNTER 2019-09-19 16:15 | Emergency (ER) | payer OTHER ==
[~2019-09-19] VITALS: Ht 162.6 cm; Wt 76.2 kg
[2019-09-19 19:15] LABS: PLATELET COUNT 383 K/uL (152-353)
[2019-09-19 19:47] LABS: POTASSIUM 5.9 mmol/L (3.6-5.2)
[2019-09-19 20:39] VITALS: BP 136/70; TEMP 98.1
== END 2019-09-19 20:40 | disposition home or self-care (01) ==
LOC: ED 16:15
PROVIDERS: Family Medicine
DX: N18.6 End stage renal disease (principal); Z99.2 Dependence on renal dialysis; R10.84 Generalized abdominal pain
CPT/HCPCS: 36415; 80053; 85027; 96374; 96375; 99282; 99284; J2175; J2405

== ENCOUNTER 2019-10-14 16:45 | Emergency (ER) | payer OTHER ==
[~2019-10-14] VITALS: Ht 162.6 cm; Wt 72.7 kg
[2019-10-14 18:05] LABS: PLATELET COUNT 220 K/uL (152-353)
[2019-10-14 18:15] LABS: POTASSIUM 4.9 mmol/L (3.6-5.2)
[2019-10-14 18:50] VITALS: BP 130/67; TEMP 98.7
== END 2019-10-14 18:52 | disposition home or self-care (01) ==
LOC: ED 16:45
PROVIDERS: Emergency Medicine Emergency Medical Services
DX: K52.89 Other specified noninfective gastroenteritis and colitis (principal); K64.8 Other hemorrhoids
CPT/HCPCS: 36415; 80053; 82150; 82272; 83605; 83690; 85027; 85610; 96360; 99284

== ENCOUNTER 2019-10-14 23:27 | Emergency (ER) | payer OTHER ==
[~2019-10-14] VITALS: Ht 33 cm; Wt 0.5 kg
[2019-10-15 00:05] LABS: PLATELET COUNT 238 K/uL (152-353)
[2019-10-15 00:49] LABS: POTASSIUM 4.8 mmol/L (3.6-5.2)
[2019-10-15 03:52] VITALS: BP 138/60; TEMP 98.3
== END 2019-10-15 03:52 | disposition home or self-care (01) ==
LOC: ED 23:27
PROVIDERS: Emergency Medicine Emergency Medical Services
DX: R10.84 Generalized abdominal pain (principal)
CPT/HCPCS: 80053; 83690; 85027; 96360; 96375; 99284; J1170; J2550

== ENCOUNTER 2019-11-21 17:10 | Emergency (ER) | payer OTHER ==
[~2019-11-21] VITALS: Ht 162.6 cm; Wt 72.6 kg
[2019-11-21 17:55] VITALS: TEMP 100
[2019-11-21 18:27] VITALS: BP 160/88
== END 2019-11-21 18:29 | disposition home or self-care (01) ==
LOC: ED 17:10
DX: I10 Essential (primary) hypertension (principal); N18.6 End stage renal disease; Z99.2 Dependence on renal dialysis; Z79.899 Other long term (current) drug therapy; F17.210 Nicotine dependence, cigarettes, uncomplicated
CPT/HCPCS: 99282

== ENCOUNTER 2019-12-19 08:31 | Outpatient (CLI) | payer OTHER | END 2019-12-19 20:10 | disposition home or self-care (01) | LOC: LAB 08:31 | DX: Z20.828 Contact with and (suspected) exposure to other viral communicable diseases (principal) | CPT/HCPCS: 87635; G2023; U0003 ==

== ENCOUNTER 2020-03-21 11:57 | Emergency (ER) | payer OTHER ==
[~2020-03-21] VITALS: Ht 162.6 cm; Wt 72.6 kg
== END 2020-03-21 14:01 | disposition expired ==
LOC: ED 11:57
DX: I46.9 Cardiac arrest, cause unspecified (principal)
CPT/HCPCS: 96360; 96361; 96374; 96375; 96376; 99285; 99291; J0171; J0282; J3490